=== PATIENT | male | born 1975 | race Caucasian/White ===

== ENCOUNTER → 2020-07-13 | Outpatient (CLI) | payer BC | LOC: ZCOL.LAB 17:32 | DX: U07.1 COVID-19 (principal) ==

== ENCOUNTER → 2021-11-05 | Outpatient (CLI) | payer SELFPAY ==
[~2021-11-05] VITALS: Ht 188 cm; Wt 81.1 kg
[~2021-11-05] MED LIST: NORCO 325 MG-51 TAB PO; PERCOCET 325 MG1 TA2 PO
[2021-11-05 12:46] VITALS: BP 156/100; PULSE 81; TEMP 98.1
[2021-11-05 13:25] VITALS: BP 155/98; PULSE 73
== END ==
LOC: COL.RAD 12:26
DX: M51.27 Other intervertebral disc displacement, lumbosacral region (principal)
CPT/HCPCS: J3301

== ENCOUNTER → 2021-11-23 | Outpatient (CLI) | payer SELFPAY ==
[~2021-11-23] VITALS: Ht 188 cm; Wt 80.9 kg
[2021-11-23 09:31] VITALS: BP 137/94; PULSE 64; TEMP 98.2
[2021-11-23 09:55] VITALS: BP 146/91; PULSE 60
== END ==
LOC: COL.RAD 09:00
DX: M54.42 Lumbago with sciatica, left side (principal)
CPT/HCPCS: J3301